=== PATIENT | male | born 1960 | race Caucasian/White ===

== ENCOUNTER → 2025-05-12 10:48 | Outpatient (BNV) | payer OTHER, SELFPAY | PROVIDERS: Emergency Provider Emergency Medicine; Visit Provider Internal Medicine Cardiovascular Disease | DX: Z13.6 Encounter for screening for cardiovascular disorders (principal) | CPT/HCPCS: 93010 ==

== ENCOUNTER 2025-05-13 15:12 | Outpatient (BNV) | payer OTHER, SELFPAY | END 2025-05-26 07:00 | PROVIDERS: Admitting Provider Registered Nurse; Emergency Provider Emergency Medicine; PCP Internal Medicine; Responsible Provider Registered Nurse; Visit Provider Internal Medicine Cardiovascular Disease | DX: R60.9 Edema, unspecified (principal) | CPT/HCPCS: 93306 ==

== ENCOUNTER 2025-05-13 15:12 | Outpatient (BNV) | payer OTHER, SELFPAY | END 2025-05-24 07:00 | PROVIDERS: Admitting Provider Registered Nurse; Emergency Provider Emergency Medicine; PCP Internal Medicine; Responsible Provider Registered Nurse; Visit Provider Radiology Diagnostic Radiology | DX: R60.0 Localized edema (principal) | CPT/HCPCS: 93970 ==

== ENCOUNTER → 2025-05-13 15:12 | Outpatient (BNV) | payer OTHER, SELFPAY | PROVIDERS: Admitting Provider Registered Nurse; Emergency Provider Emergency Medicine; PCP Internal Medicine; Responsible Provider Registered Nurse; Visit Provider Nurse Practitioner Family | DX: I10 Essential (primary) hypertension (principal) | CPT/HCPCS: 99221; 99231; 99499 ==

== ENCOUNTER → 2025-05-13 15:12 | Outpatient (BNV) | payer OTHER, SELFPAY | PROVIDERS: Admitting Provider Registered Nurse; Emergency Provider Emergency Medicine; PCP Internal Medicine; Responsible Provider Registered Nurse; Visit Provider Psychiatry & Neurology Psychiatry | DX: F33.2 Major depressive disorder, recurrent severe without psychotic features (principal); F43.11 Post-traumatic stress disorder, acute; F11.90 Opioid use, unspecified, uncomplicated; F14.90 Cocaine use, unspecified, uncomplicated; F10.90 Alcohol use, unspecified, uncomplicated; R45.850 Homicidal ideations; I10 Essential (primary) hypertension | CPT/HCPCS: 99232 ==